=== PATIENT | female | born 1960 | race Caucasian/White ===

== ENCOUNTER → 2022-10-24 12:28 | Outpatient (CLI) | payer MEDICARE, MEDICAID, SELFPAY ==
--- NOTE | 2022-10-24 12:34 | DI.US.S_ITS ---
PROCEDURE: US ABDOMEN LIMITED INDICATIONS: RUQ PAIN TECHNIQUE: Real-time focused scanning was performed of the abdomen, with image documentation. COMPARISON: None. FINDINGS: Normal hepatic parenchymal echogenicity and echotexture. Small left hepatic lobe simple cyst noted. No solid hepatic mass. Gallbladder normal. No intrahepatic or extrahepatic biliary ductal dilatation. Pancreas unremarkable. IMPRESSION: Normal right upper quadrant abdominal ultrasound. Dictated by: Marquise Irwin M.D. on 10/24/2022 at 14:21 Approved by: Marquise Irwin M.D. on 10/24/2022 at 14:33
[2022-10-27 00:07] LABS: Chromium, Plasma 0.7 ug/L (0.1-2.1)
== END ==
PROVIDERS: Family Provider Family Medicine; PCP Family Medicine; Referring Provider Family Medicine; Visit Provider Family Medicine
DX: T56.2X Toxic effects of chromium and its compounds (principal); R10.11 Right upper quadrant pain; M54.41 Lumbago with sciatica, right side; M54.42 Lumbago with sciatica, left side; G89.29 Other chronic pain; Z98.1 Arthrodesis status
CPT/HCPCS: 36415; 76705; 82495